=== PATIENT | female | born 1950 | race Caucasian/White ===

== ENCOUNTER 2019-03-25 18:34 | Emergency (ER) | payer MEDICARE, MEDICAID ==
[2019-03-25] MEDS ORDERED: NORMAL SALINE 1000 ML 1,000 ML IV ONE ×2 (19:03→20:19)
[2019-03-25] MEDS ORDERED: BUSPIRONE HCL 10 MG TABLET PO ONE (19:06)
[2019-03-25] MEDS ORDERED: OLANZAPINE 2.5 MG TABLET PO ONE (19:06)
[2019-03-25] MEDS ORDERED: QUETIAPINE FUMARATE 25 MG TABLET PO ONE (19:07)
[2019-03-25 19:32] LABS: ABSOLUTE EOSINOPHILS # (AUTO) 0.1 10^3/uL (0.0-0.6); ABSOLUTE LYMPHOCYTES (AUTO) 2.1 10^3/uL (0.5-4.7); ABSOLUTE MONOCYTES (AUTO) 0.9 10^3/uL (0.1-1.4); ABSOLUTE NEUT (AUTO) 5.1 10^3/uL (1.7-8.2); BASOPHILS % (AUTO) 0.4 % (0-2); HEMATOCRIT 39.9 % (36.0-47.0); HEMOGLOBIN 13.1 g/dL (12.0-15.5); LYMPHOCYTES % (AUTO) 25.6 % (13-45); MEAN CORPUSCULAR HEMOGLOBIN 30.9 pg (27.0-33.4); MEAN CORPUSCULAR HGB CONC 32.8 g/dL (32.0-36.0); MEAN CORPUSCULAR VOLUME 94 fl (80-97); MONOCYTES % (AUTO) 10.6 % (3-13); PLATELET COUNT 235 10^3/uL (150-450); RED BLOOD COUNT 4.23 10^6/uL (3.72-5.28); RED CELL DISTRIBUTION WIDTH 14.5 % (11.5-14.0); SEGMENTED NEUTROPHILS % (AUTO) 62.4 % (42-78); TOTAL CELLS COUNTED % (AUTO) 100 %; WHITE BLOOD COUNT 8.2 10^3/uL (4.0-10.5)
[2019-03-25 19:37] LABS: INTERNATIONAL RATION (INR) 1.05; PROTHROMBIN TIME 13.7 SEC (11.4-15.4)
--- NOTE | 2019-03-25 19:44 | RADIOLOGY REPORT (SQ) ---
EXAM DESCRIPTION: CHEST SINGLE VIEW COMPLETED DATE/TIME: 03/25/2019 7:23 pm REASON FOR STUDY: fever/ams COMPARISON: 12/10/2008 EXAM PARAMETERS: NUMBER OF VIEWS: One view. TECHNIQUE: Single frontal radiographic view of the chest acquired. RADIATION DOSE: NA LIMITATIONS: Respiratory motion FINDINGS: LUNGS AND PLEURA: No opacities, masses or pneumothorax. No pleural effusion. MEDIASTINUM AND HILAR STRUCTURES: No masses. Contour normal. HEART AND VASCULAR STRUCTURES: The heart size is borderline. No ramses pulmonary edema. BONES: No acute findings. HARDWARE: None in the chest. OTHER: No other significant finding. IMPRESSION: Borderline cardiomegaly. No pulmonary edema. TECHNICAL DOCUMENTATION: JOB ID: [id number] [employer]- All Rights Reserved Reading location - IP/workstation name: [email or web address]
[2019-03-25 19:50] LABS: ALBUMIN 4.4 g/dL (3.5-5.0); ALKALINE PHOSPHATASE 44 U/L (38-126); ANION GAP 10 (5-19); ASPARTATE AMINO TRANSFERASE 24 U/L (14-36); BILIRUBIN,DIRECT 0.3 mg/dL (0.0-0.4); BILIRUBIN,TOTAL 0.4 mg/dL (0.2-1.3); BLOOD UREA NITROGEN 13 mg/dL (7-20); CALCIUM 9.8 mg/dL (8.4-10.2); CARBON DIOXIDE 30 mmol/L (22-30); CHLORIDE 96 mmol/L (98-107); GLUCOSE 104 mg/dL (75-110); POTASSIUM 5.4 mmol/L (3.6-5.0); TOTAL PROTEIN 7.6 g/dL (6.3-8.2)
[2019-03-25 20:06] LABS: VENOUS BLOOD BASE EXCESS -2.6 mmol/L; VENOUS BLOOD HCO3 23.9 mmol/L (20-32); VENOUS BLOOD PCO2 48.2 mmHg (35-63); VENOUS BLOOD PH 7.31 (7.30-7.42)
[2019-03-25] MEDS ORDERED: PIPERACILLIN/TAZOBACTAM 3.375 GM VIAL IV ONE (20:19)
--- NOTE | 2019-03-25 20:50 | ER Document Report ---
ED Fall <KARUNA AREVALO - Last Filed: 03/26/19 05:01> - General Mode of Arrival: Medic Information source: Emergency Med Personnel, Outside Facility Records TRAVEL OUTSIDE OF THE [place] IN LAST 30 DAYS: No <JUANITA CODY - Last Filed: 03/26/19 14:48> - General Chief Complaint: Fall Injury Stated Complaint: FALL Time Seen by Provider: 03/25/19 19:03 Primary Care Provider: JESSIE BOYD MD [Primary Care Provider] - Follow up tomorrow - [facility] Notes: Patient is brought in by ambulance after a fall. Apparently patient fell out of bed. Patient has a history of cognitive disorder. It also appears patient has a history of mental retardation. She apparently has a history of becoming agitated and became agitated today and fell. She did strike her head per the outside facility. No new mental status changes have been appreciated that we know of. Patient is apparently at baseline. No injuries to any extremities or trunk or appreciated. No known recent vomiting or diarrhea. The emergency medicine personnel do report that patient has not had some of her psychiatric medications for 3 to 4 days because the facility has been out of them. (JUANITA CODY) Past Medical History - General Information source: Outside Facility Records - Social History Smoking Status: Never Smoker Frequency of alcohol use: None Drug Abuse: None Family History: Reviewed & Not Pertinent Patient has suicidal ideation: No Patient has homicidal ideation: No Renal/ Medical History: Denies: Hx Peritoneal Dialysis Musculoskeletal Medical History: Reports Hx Arthritis Psychiatric Medical History: Reports: Hx Depression <JUANITA CODY - Last Filed: 03/26/19 14:48> Review of Systems - Review of Systems -: Yes ROS unobtainable due to patient's medical condition - Patient with a history of severe mental retardation <JUANITA CODY - Last Filed: 03/26/19 14:48> Physical Exam - Vital signs Interpretation: Tachycardic, Febrile - General General appearance: Anxious In distress: None - HEENT Head: Normocephalic, Atraumatic Eyes: Normal Pupils: PERRL Mucous membranes: Dry Neck: Normal - Respiratory Respiratory status: No respiratory distress Chest status: Nontender Breath sounds: Normal Chest palpation: Normal - Cardiovascular Rhythm: Tachycardia Heart sounds: Normal auscultation Murmur: No - Abdominal Inspection: Normal Distension: No distension Bowel sounds: Normal Tenderness: Nontender Organomegaly: No organomegaly - Back Back: Normal, Nontender - Extremities General upper extremity: Nontender, Normal color, Normal temperature General lower extremity: Nontender, Normal color, Normal temperature - Neurological Cognition: Confused Orientation: Disoriented to person, Disoriented to place, Disoriented to time [place] Coma Scale Eye Opening: Spontaneous [place] Coma Scale Verbal: Incomprehensible [place] Coma Scale Motor: Localizes to Pain [place] Coma Scale Total: 11 Additional motor exam normals: Involuntary movements - Psychological Associated symptoms: Agitated, Confused - Skin Skin Temperature: Warm Skin Moisture: Dry Skin Color: Normal <JUANITA CODY - Last Filed: 03/26/19 14:48> - Vital signs Vitals: Pulse Ox 92 03/25/19 18:40 Course - Laboratory Result Diagrams: 03/25/19 19:10 03/25/19 19:10 <KARUNA AREVALO - Last Filed: 03/26/19 05:01> - Laboratory Result Diagrams: 03/25/19 19:10 03/25/19 19:10 - Diagnostic Test Radiology reviewed: Image reviewed, Reports reviewed <JUANITA CODY - Last Filed: 03/26/19 14:48> - Re-evaluation Re-evalutation: 03/26/19 05:01 Patient's lactate improved with IV fluids. I question if the elevated lactate may have been from her agitation and thrashing around most likely related to not having her antipsychotic medications. Blood work otherwise looked appropriate. The patient was rehydrated. Urinalysis and chest x-ray were negative. On my repeat exam abdomen was nontender. There was no skin breakdown or suggestion for cellulitis. I called and spoke with patient's regular practitioner Dr. Maile chaney who requested a CT scan of the head which was negative. Patient has not had any cough or congestion. Also question of low-grade temperature of 100.6 may be secondary to patient's agitation, as she did not receive Tylenol and all the repeat temperatures were normal after she calmed down. Blood cultures have been taken which are pending. Patient has received Zosyn after blood cultures.. Patient required Ativan to assist with her agitation to get her to CT scan. After the Ativan and Zyprexa and other medications, by report her mental state was at its baseline. No clinical suggestion for meningitis or encephalitis. There is no neck pain on exam. I discussed the following findings at length with Dr. Boyd and he was in agreement that patient was stable for discharge back to the [facility] in likewise did not feel that antibiotics were indicated for the patient. There is no evidence for sepsis. Patient has a prior history of thyrotoxicosis, but current free T4 is normal. There is mild dehydration and potassium is mildly elevated, but this should be improved with the IV rehydration of 30 cc/kg. EKG as interpreted by me showed normal sinus rhythm heart rate of 56. There is no gross evidence for acute OK or ischemia noted. 03/26/19 05:03 03/26/19 05:06 03/26/19 05:06 (KARUNA AREVALO) 03/26/19 14:48 at 10pm care of pt turned over to Dr. arevalo (JUANITA CODY) - Vital Signs Vital signs: Temp Pulse Resp BP Pulse Ox 100.6 F H 63 20 125/74 83 L 03/25/19 18:48 03/26/19 04:02 03/26/19 04:02 03/26/19 05:25 03/26/19 05:25 - Laboratory Laboratory results interpreted by me: 03/25/19 03/25/19 03/25/19 19:10 19:10 19:10 RDW 14.5 H Sodium 136.4 L Potassium 5.4 H Chloride 96 L Lactic Acid 3.8 H TSH 03/25/19 19:10 RDW Sodium Potassium Chloride Lactic Acid TSH 6.28 H Discharge <KARUNA AREVALO - Last Filed: 03/26/19 05:01> <JUANITA CODY - Last Filed: 03/26/19 14:48> - Discharge Clinical Impression: Agitation, Hyperkalemia, Dehydration Accidental fall Qualifiers: Encounter type: initial encounter Qualified Code(s): W19.XXXA - Unspecified fall, initial encounter Head injury Qualifiers: Encounter type: initial encounter Qualified Code(s): S09.90XA - Unspecified injury of head, initial encounter Condition: Stable Disposition: HOME-SNF (ED ONLY) Instructions: Dehydration ([facility]), Head Injury Precautions ([facility]) Additional Instructions: Encourage PO fluid intake. Referrals: JESSIE BOYD MD [Primary Care Provider] - Follow up tomorrow
[2019-03-25 22:31] LABS: APPEARANCE,URINE CLEAR; BILIRUBIN,URINE NEGATIVE (NEGATIVE); COLOR,URINE STRAW; GLUCOSE, URINE NEGATIVE (NEGATIVE); KETONES,URINE NEGATIVE (NEGATIVE); LEUKOCYTE ESTERASE,URINE NEGATIVE (NEGATIVE); NITRITE,URINE NEGATIVE (NEGATIVE); PROTEIN,URINE NEGATIVE (NEGATIVE); UROBILINOGEN,URINE NEGATIVE mg/dL (<2.0)
[2019-03-25] MEDS ORDERED: LORAZEPAM INJ 2 MG/1 ML VIAL IV ONE (23:50)
[2019-03-26 00:16] LABS: FREE T4 (FREE THYROXINE) 1.11 ng/dL (0.78-2.19)
[2019-03-26 00:30] LABS: THYROID STIMULATING HORMONE 6.28 uIU/mL (0.47-4.68)
[2019-03-26] MEDS ORDERED: LORAZEPAM INJ 2 MG/1 ML VIAL IV ONE (03:51)
--- NOTE | 2019-03-26 04:39 | RADIOLOGY REPORT (SQ) ---
EXAM DESCRIPTION: CT HEAD WITHOUT IV CONTRAST COMPLETED DATE/TME: 03/26/2019 02:12 CLINICAL HISTORY: 69 years Female, Head injury COMPARISON: None. TECHNIQUE: No contrast. Coronal and sagittal reformat. This exam was performed according to our departmental dose-optimization program, which includes automated exposure control, adjustment of the mA and/or kV according to patient size and/or use of iterative reconstruction technique. FINDINGS: No hemorrhage or infarct. No mass, mass effect, or midline shift. Atherosclerosis. Parenchymal volume loss. 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 Brain and extra-axial structures appear otherwise intact. IMPRESSION: No acute findings.
[2019-03-26 05:36] VITALS: BP 125/74
--- NOTE | 2019-03-26 07:07 | EKG REPORT ---
SEVERITY:- ABNORMAL ECG - SINUS RHYTHM LVH WITH SECONDARY REPOLARIZATION ABNORMALITY NONSPECIFIC INFERIORST-T CHANGES : Confirmed by: Martinez Desouza MD 26-Mar-2019 07:06:49
== END 2019-03-26 06:11 ==
LOC: ER 18:34
DX: R45.1 Restlessness and agitation (principal); E87.5 Hyperkalemia; E86.0 Dehydration; S09.90XA Unspecified injury of head, initial encounter; W06.XXXA Fall from bed, initial encounter; Y92.10 Unspecified residential institution as the place of occurrence of the external cause
CPT/HCPCS: 93005; 36415; 87040; 87086; 84439; 84443; 85025; 85610; 80053; 81001; 84484; 80164; 82803; 83605; 71045; 70450; 93010; A9270 ×3; J2060 ×2; J7030; J2543; J3490